=== PATIENT | female | born 1955 | race Caucasian/White ===

== ENCOUNTER 2017-07-29 21:55 | Emergency (ER) | payer OTHER ==
[~2017-07-29] VITALS: Ht 162.5 cm; Wt 49.9 kg
[~2017-07-29 21:55] MED LIST: ALDACTONE100 MG PO; ASPIR 8181 MG PO; COUMADIN5 M2 PO; HYDROXYUREA PO; LASIX20 MG PO; MULTIPLE VITAMI1 CAP PO; NKHM; PANTOPRAZOLE40 M1 PO; VITAMIN B COMPL1 TA1 PO; ZANTAC150 MG PO
[2017-07-29 22:27] LABS: EOS # 0.1 10*3/uL (0.0-0.4); EOS % 1.5 % (1.0-4.0); HEMATOCRIT 38.1 % (37.0-47.0); HEMOGLOBIN 11.9 g/dl (12.0-16.0); LYMPH # 1.4 10*3/uL (1.3-4.4); LYMPH % 34.8 % (27.0-41.0); MEAN CELL VOLUME 92.9 fl (81.0-99.0); MEAN CORPUSCULAR HGB CONC 31.2 g/dl (33.0-37.0); MEAN PLATELET VOLUME 11.5 fl (9.6-12.3); MONO # 0.5 10*3/uL (0.1-1.0); MONO % 11.9 % (3.0-9.0); NEUT # 2.1 10*3/uL (2.3-7.9); NEUT % 50.6 % (47.0-73.0); PLATELET COUNT AUTOMATED 354 10*3/uL (130-400); RED CELL DISTRI WIDTH 15.2 % (0-14.5); WHITE BLOOD COUNT 4.1 10*3/uL (4.8-10.8)
[2017-07-29 22:37] LABS: ACT PARTIAL THROMBO TIME 49.4 SECONDS (20.8-31.5); INTERNATIONAL NORM RATIO 4.5 (2.0-3.5)
[2017-07-29 22:43] LABS: ALBUMIN 3.8 gm/dl (3.1-4.5); ALKALINE PHOSPHATASE 82 U/L (45-117); BUN 10 mg/dl (7-24); CHLORIDE 105 mmol/L (98-107); CREATININE 0.72 mg/dL (0.55-1.02); POTASSIUM 3.9 mmol/L (3.5-5.1); SGOT/AST 35 IU/L (3-35); SGPT/ALT 42 U/L (12-78); SODIUM 140 mmol/L (136-145); TOTAL PROTEIN 6.4 gm/dL (6.4-8.2)
== END 2017-07-29 23:54 | disposition home or self-care (01) ==
LOC: ED 21:55
PROVIDERS: Nurse Practitioner Family
DX: R79.1 Abnormal coagulation profile (principal); Z79.82 Long term (current) use of aspirin

== ENCOUNTER → 2017-11-10 | Outpatient (CLI) | payer OTHER ==
[2017-11-10 19:28] LABS: INTERNATIONAL NORM RATIO 1.3 (2.0-3.5)
== END | disposition home or self-care (01) ==
LOC: LAB 18:28
PROVIDERS: Physician Assistant
DX: D68.59 Other primary thrombophilia (principal)

== ENCOUNTER 2018-11-20 00:03 | Emergency (ER) | payer OTHER, MEDICARE ==
[~2018-11-20] VITALS: Ht 162.5 cm; Wt 53.5 kg
[2018-11-20 01:04] LABS: INTERNATIONAL NORM RATIO 3.5 (2.0-3.5)
== END 2018-11-20 02:05 | disposition home or self-care (01) ==
LOC: ED 00:03
PROVIDERS: Nurse Practitioner Family
DX: S00.83XA Contusion of other part of head, initial encounter (principal); Z79.899 Other long term (current) drug therapy; Z79.01 Long term (current) use of anticoagulants; Z79.82 Long term (current) use of aspirin; W20.8XXA Other cause of strike by thrown, projected or falling object, initial encounter; Y93.89 Activity, other specified; Y92.89 Other specified places as the place of occurrence of the external cause; Y99.8 Other external cause status

== ENCOUNTER 2020-05-16 16:07 | Emergency (ER) | payer MEDICARE ==
[~2020-05-16] VITALS: Ht 162.5 cm; Wt 53.5 kg
[2020-05-16 16:33] LABS: BASO % 0.7 % (0.0-1.0); EOS % 1.1 % (1.0-4.0); LYMPH # 1.1 10*3/uL (1.3-4.4); LYMPH % 38.5 % (27.0-41.0); MEAN CELL VOLUME 91.3 fl (81.0-99.0); MEAN CORPUSCULAR HGB 29.6 pg (27.0-31.0); MEAN CORPUSCULAR HGB CONC 32.4 g/dl (33.0-37.0); MEAN PLATELET VOLUME 12.3 fl (9.6-12.3); MONO # 0.3 10*3/uL (0.1-1.0); MONO % 12.5 % (3.0-9.0); NEUT # 1.3 10*3/uL (2.3-7.9); NEUT % 47.2 % (47.0-73.0); PLATELET COUNT AUTOMATED 225 10*3/uL (130-400); RED BLOOD COUNT 4.16 10*6/uL (4.10-5.10); RED CELL DISTRI WIDTH 13.9 % (0-14.5); WHITE BLOOD COUNT 2.7 10*3/uL (4.8-10.8)
[2020-05-16 16:48] LABS: ALKALINE PHOSPHATASE 115 U/L (45-117); BUN 18 mg/dl (7-24); CHLORIDE 109 mmol/L (98-107); CREATININE 0.74 mg/dL (0.55-1.02); SGOT/AST 41 IU/L (3-35); SGPT/ALT 54 U/L (12-78); SODIUM 140 mmol/L (136-145); TOTAL PROTEIN 7.2 gm/dL (6.4-8.2)
[2020-05-16 16:54] LABS: INTERNATIONAL NORM RATIO 9.3 (2.0-3.5)
== END 2020-05-16 17:30 | disposition home or self-care (01) ==
LOC: ED 16:07
PROVIDERS: Student in an Organized Health Care Education/Training Program
DX: T65.91XA Toxic effect of unspecified substance, accidental (unintentional), initial encounter (principal); Z79.899 Other long term (current) drug therapy; Z79.01 Long term (current) use of anticoagulants; Z79.82 Long term (current) use of aspirin; Y92.89 Other specified places as the place of occurrence of the external cause

== ENCOUNTER 2021-04-10 16:45 | Emergency (ER) | payer MEDICARE ==
[~2021-04-10] VITALS: Wt 50.8 kg
[2021-04-10] MEDS ORDERED: PREDNISONE20 M1 PO (18:45)
[2021-04-10] MEDS ORDERED: PROVENTIL HFA6.7 GM INH (18:45)
== END 2021-04-10 19:17 | disposition home or self-care (01) ==
LOC: ED 16:45
DX: U07.1 COVID-19 (principal); Z79.899 Other long term (current) drug therapy; Z79.82 Long term (current) use of aspirin

== ENCOUNTER 2022-07-30 20:13 | Emergency (ER) | payer MEDICARE ==
[~2022-07-30] VITALS: Ht 162.5 cm; Wt 52.2 kg
[~2022-07-30 20:13] MED LIST changes: +PREDNISONE20 M1 PO; +PROVENTIL HFA6.7 GM INH
[2022-07-30] MEDS ORDERED: Coumadin10 MG PO (21:07)
[2022-07-30 21:58] LABS: INTERNATIONAL NORM RATIO 1.6 (2.0-3.5)
== END 2022-07-30 22:50 | disposition home or self-care (01) ==
LOC: ED 20:13
PROVIDERS: Nurse Practitioner Family
DX: S01.03XA Puncture wound without foreign body of scalp, initial encounter (principal); D75.1 Secondary polycythemia; W01.10XA Fall on same level from slipping, tripping and stumbling with subsequent striking against unspecified object, initial encounter; Y93.89 Activity, other specified; Y92.009 Unspecified place in unspecified non-institutional (private) residence as the place of occurrence of the external cause; Y99.8 Other external cause status

== ENCOUNTER → 2022-12-11 | Outpatient (CLI) | payer MEDICARE ==
[~2022-12-11] MED LIST changes: +Coumadin10 MG PO
== END | disposition home or self-care (01) ==
LOC: RAD 12-04 08:30
PROVIDERS: ATTEND Physician Assistant
DX: M81.0 Age-related osteoporosis without current pathological fracture (principal); M85.80 Other specified disorders of bone density and structure, unspecified site

== ENCOUNTER 2024-02-25 17:13 | Emergency (ER) | payer MEDICARE ==
[~2024-02-25] VITALS: Ht 162.5 cm; Wt 50.3 kg
[2024-02-25] MEDS ORDERED: SODIUM CHLORIDE 0.9% 1,000 ML IV ONE (17:35)
[2024-02-25 18:02] LABS: BASO % 0.2 % (0.0-1.0); HEMATOCRIT 44.5 % (37.0-47.0); MEAN CORPUSCULAR HGB 25.5 pg (27.0-31.0); MEAN CORPUSCULAR HGB CONC 31.9 g/dl (33.0-37.0); MONO # 0.5 10*3/uL (0.1-1.0); MONO % 5.5 % (3.0-9.0); NEUT # 7.1 10*3/uL (2.3-7.9); PLATELET COUNT AUTOMATED 185 10*3/uL (130-400); RED BLOOD COUNT 5.56 10*6/uL (4.10-5.10); RED CELL DISTRI WIDTH 16.6 % (0-14.5); WHITE BLOOD COUNT 8.2 10*3/uL (4.8-10.8)
[2024-02-25 18:12] LABS: BILIRUBIN 1+ (Negative); BLOOD Trace-Lysed (Negative); CLARITY Cloudy (Clear); COLOR Dark Yellow (Yellow); GLUCOSE Negative (Negative); KETONE Trace (Negative); LEUKO ESTERASE Trace (Negative); NITRITE Negative (Negative); SPECIFIC GRAVITY 1.025 (1.001-1.030)
[2024-02-25 18:12] LABS: BUN 22 mg/dl (9-23); CHLORIDE 97 mmol/L (98-107); POTASSIUM 3.8 mmol/L (3.4-5.1)
[2024-02-25 18:29] LABS: BACTERIA 2+
[2024-02-25] MEDS ORDERED: TAMIFLU 75MG CA75 MG PO (19:16)
[2024-02-25] MEDS ORDERED: AMOX-CLAV 875-1 EACH PO (19:16)
[2024-02-25] MEDS ORDERED: Amoxicillin/Clavulanate Pota 875 MG TAB PO ONE (19:30)
[2024-02-25] MEDS ORDERED: Oseltamivir Phosphate 75 MG CAP PO ONE (19:30)
== END 2024-02-25 19:36 | disposition home or self-care (01) ==
LOC: ED 17:13
PROVIDERS: Physician Assistant Medical
DX: J10.1 Influenza due to other identified influenza virus with other respiratory manifestations (principal); Z20.822 Contact with and (suspected) exposure to COVID-19; J18.9 Pneumonia, unspecified organism; N39.0 Urinary tract infection, site not specified